=== PATIENT | male | born 1980 ===

== ENCOUNTER 2016-04-23 12:28 | Emergency (ER) | payer MEDICAID ==
[~2016-04-23 12:28] MED LIST: CEFAZOLIN 2 GM/DEXTROSE/100 ML BAG IV ONE; DEXAMETHASONE 10 MG/ML VIAL IVP ONE; DEXAMETHASONE 10 MG/ML VIAL ONE; DEXAMETHASONE 4 MG/ML VIAL ONE; LIDO/EPI 1% **for epidural** 30 ML SDV ONE; LR 1,000 ML IV ONE; METOPROLOL TARTRATE 5 MG/5 ML INJ IVP ONE; METOPROLOL TARTRATE 5 MG/5 ML INJ ONE; MIDAZOLAM 2 MG/2 ML VIAL ONE; OXYMETAZOLINE 30 ML NASAL SPRAY EACHNARE ONE; OXYMETAZOLINE 30 ML NASAL SPRAY ONE; PROPOFOL/EMULSION 500 MG/50 ML BOTTLE IV ONE; TRIAMCINOLONE ACETONIDE 40 MG/ML VIAL ONE; WATER FOR INJ.,BACTERIOSTATIC 30 ML MDV ONE; ceFAZolin 2 GM/DEXTROSE 100 ML IV ONE; fentaNYL 250 MCG/5 ML INJ ONE
--- NOTE | 2016-04-23 12:39 | PDCONSULT ---
Train Attendant Note: 35 y.o. male scheduled to have outpatient sinus surgery. On admission, patient noted to have BP 190s/ 120s. Retaken and BP still 170's/ 120's throughout admission. Patient admits to having a FIELD but says he always has one from his sinuses. Patient denies blurry vision and chest pain. Patient given 2mg Metoprolol IV. BP retaken and elevated from the last to 178/129. Spoke to Dr. Sharma and necessity of surgery is not urgent. He needs to be evaluated on an outpatient basis for possibility of adding an antihypertensive. Patient understands and agrees. He will be evaluated prior to discharge by the ED.
[2016-04-23 13:56] VITALS: RESP 18
--- NOTE | 2016-04-23 14:18 | EDPHY ---
H & P Time Seen by Provider: 04/23/16 14:05 HPI/ROS: CHIEF COMPLAINT: High blood pressure HISTORY OF PRESENT ILLNESS: 35-year-old male presents with elevated blood pressure. He was scheduled for sinus surgery this morning, but the sinus surgery was canceled because elevated blood pressure. He has a long history of borderline high blood pressure. He has been monitoring his blood pressure at home, but has never taken blood pressure medication. He would like to try blood pressure medication at this point. He denies chest pain, shortness of breath or other symptoms. REVIEW OF SYSTEMS: Constitutional: No fever, no chills Eyes: No visual changes ENT: No sore throat Respiratory: No cough, no shortness of breath Cardiac: No chest pain Gastrointestinal: No nausea, no vomiting, no abdominal pain Genitourinary: no dysuria Musculoskeletal: No leg pain or swelling Skin: No rash Neurological: No headache Psychiatric: No anxiety Past Medical/Surgical History: Nasal polyps Smoking Status: Never smoked Physical Exam: General Appearance: Alert, no distress Eyes: Pupils equal and round, no conjunctival pallor ENT, Mouth: Mucous membranes moist Neck: Normal inspection Respiratory: Lungs are clear to auscultation Cardiovascular: Regular rate and rhythm Gastrointestinal: Abdomen is soft and nontender Neurological: A&O, nonfocal, normal gait Skin: Warm and dry Extremities: normal inspection Psychiatric: Mood and affect normal Constitutional: Initial Vital Signs Heart Rate 82 04/23/16 12:28 Respiratory Rate 18 04/23/16 12:28 Blood Pressure 172/125 H 04/23/16 12:28 O2 Sat (%) 16 L 04/23/16 12:28 O2 Delivery Mode Room Air Allergies/Adverse Reactions: aspirin Allergy (Verified 04/21/16 16:01) Swelling/neck,face,throat ibuprofen Allergy (Verified 04/21/16 16:01) Swelling/neck,face,throat Home Medications: Medication Instructions Recorded Albuterol 04/21/16 Dulera 200 Mcg/5 Mcg Inhaler 04/21/16 Nasa Mist Saline [place] 04/21/16 Prednisone 04/21/16 Lisinopril 5 mg PO DAILY #15 tablet 04/23/16 Medical Decision Making ED Course/Re-evaluation: BP 176/126. Lisinopril 5mg orally given. Evidence hypertensive emergency or urgency. Will discharge home with a prescription for lisinopril. Will follow up with his primary care physician in 2 days for recheck. Differential Diagnosis: Includes is not limited to intracranial hemorrhage, acute coronary syndrome, acute renal failure, severe pain. - Data Points Medications Given: Discontinued Medications Cefazolin Sodium/Dextrose (Ancef 2 Gm (Premix)) 100 mls @ 200 mls/hr IV ONCALL ONE Stop: 04/23/16 06:29 Last Admin: 04/23/16 13:07 Dose: Not Given Departure - Departure Disposition: Home, Routine, Self-Care Clinical Impression: Hypertension Qualifiers: Hypertension type: essential hypertension Qualified Code(s): I10 - Essential ( primary) hypertension Condition: Good Instructions: Hypertension (ED) Referrals: Kalyn Coronel NP [Primary Care Provider] - 1 day without fail Prescriptions: Lisinopril 5 mg PO DAILY #15 tablet
[2016-04-23 14:25] VITALS: BP 176/126; PULSE 75; TEMP 97.7; O2SAT 97
[2016-04-24] MEDS ORDERED: LISINOPRIL 5 MG TAB PO SCH (09:00)
== END 2016-04-23 14:25 | disposition home or self-care (01) ==
DX: I10 Essential (primary) hypertension (principal)
CPT/HCPCS: J0690; J1100; J2250; J2704; J3010; J3301